=== PATIENT | female | born 1960 | race Caucasian/White ===

== ENCOUNTER 2017-12-01 | Outpatient (CLI) | END 2017-12-01 20:24 | disposition critical access hospital (66) | CPT/HCPCS: A0425; A0427 ==

== ENCOUNTER 2017-12-01 20:39 | Emergency (ER) | payer OTHER ==
[2017-12-01] MEDS ORDERED: ONDANSETRON 4 MG/2 ML VIAL IVP STA (20:54)
[2017-12-01 21:13] LABS: BASOPHILS % (AUTO) 0.4 %; EOSINOPHILS # (AUTO) 0.1 10^3/uL (0.0-0.7); EOSINOPHILS % (AUTO) 1.2 %; HGB - HEMOGLOBIN 13.8 g/dL (12.0-16.0); LYMPHOCYTES # (AUTO) 2.9 10^3/uL (1.5-3.5); LYMPHOCYTES % (AUTO) 27.6 %; MEAN CORPUSCULAR HEMOGLOBIN 29.2 pg (27.0-31.0); MEAN CORPUSCULAR HGB CONC 33.9 g/dL (32.0-36.0); MEAN CORPUSCULAR VOLUME 86.2 fL (81.0-99.0); MEAN PLATELET VOLUME 7.2 fL (7.9-10.8); MONOCYTES # (AUTO) 0.6 10^3/uL (0.0-1.0); NEUTROPHILS # (AUTO) 6.7 10^3/uL (1.5-6.6); NEUTROPHILS % (AUTO) 64.8 %; PLT - PLATELET COUNT 284 10^3/uL (130-450); RED BLOOD COUNT 4.74 10^6/uL (4.20-5.40); RED CELL DISTRIBUTION WIDTH 13.5 % (12.0-15.0); WHITE BLOOD COUNT 10.4 x10^3/uL (4.8-10.8)
--- NOTE | 2017-12-01 21:15 | ED Physician Documentation ---
History of Present Illness - Stated complaint Stated Complaint: ? ALLERGIC REACTION - Chief complaint Chief Complaint: Neuro - History obtained from History obtained from: Patient, Family, EMS - History of Present Illness Timing: Today Pain level max: 4 Pain level now: 3 Improved by: nothing Worsened by: nothing - Additonal information Additional information: Patient is a 57-year-old female who presents to the emergency department after a syncopal event today. She states that this happens to her approximately once every 11 years. She states that tonight she felt nauseated and "sick to her stomach". She also felt warm all over, went to lie down and had a syncopal event. Did have urinary incontinence. States that that has occurred before. states he found her on the ground, but she was not confused. There was no seizure activity witnessed. She states that this has been going on since the late . Currently feels normal other than a mild headache and mild nausea. No chest pain. No shortness of breath. No palpitations. Review of Systems Ten Systems: 10 systems reviewed and negative Constitutional: denies: Fever, Chills Ears: denies: Ear pain Nose: denies: Rhinorrhea / runny nose, Congestion Throat: denies: Sore throat Cardiac: denies: Chest pain / pressure, Palpitations Respiratory: denies: Dyspnea, Cough GI: denies: Hematemesis, Bloody / black stool : reports: Incontinent. denies: Dysuria, Frequency, Hesitancy Skin: denies: Rash Musculoskeletal: denies: Neck pain, Back pain Neurologic: denies: Focal weakness, Numbness, Confused, Altered mental status PD PAST MEDICAL HISTORY - Past Medical History Past Medical History: Yes Endocrine/Autoimmune: HyPOthyroidism - Past Surgical History Past Surgical History: Yes General: Appendectomy - Present Medications Home Medications: Ambulatory Orders Medication Instructions Recorded Confirmed Levothyroxine [Synthroid] 01/30/16 - Allergies Allergies/Adverse Reactions: Allergies Allergy/AdvReac Type Severity Reaction Status Date / Time No Known Drug Allergies Allergy Verified 12/01/17 20:50 - Living Situation Living Situation: reports: With family Living Arrangement: reports: At home - Social History Does the pt smoke?: No Smoking Status: Never smoker PD ED PE NORMAL - Vitals Vital signs reviewed: Yes - General General: Alert and oriented X 3 - HEENT HEENT: Atraumatic, PERRL, Ears normal, Moist mucous membranes, Pharynx benign, Other (Normal intraoral exam. No tongue biting. No swollen tongue) - Neck Neck: Supple, no meningeal sign - Cardiac Cardiac: RRR, Strong equal pulses - Respiratory Respiratory: No respiratory distress, Clear bilaterally - Abdomen Abdomen: Soft, Non tender, Non distended - Back Back: No spinal TTP - Derm Derm: Warm and dry, No rash - Extremities Extremities: No edema - Neuro Neuro: Alert and oriented X 3, merchandising team lead 2-12 intact, No motor deficit, No sensory deficit Eye Opening: Spontaneous Motor: Obeys Commands Verbal: Oriented GCS Score: 15 - Psych Psych: Normal mood, Normal affect Results - Vitals Vitals: Vital Signs - 24 hr 12/01/17 12/01/17 20:42 22:19 Temperature 36.8 C Heart Rate 89 94 Respiratory 16 16 Rate Blood Pressure 141/95 H 142/65 H O2 Saturation 94 96 Oxygen O2 Source Room air - EKG (time done) 2044 Rate: Rate (enter#) (87) Rhythm: NSR Vincent: Normal Intervals: Normal PA QRS: Normal Ischemia: Normal ST segments, Q waves (III, aVF) Computer interpretation: Agree with computer - Labs Labs: Laboratory Tests 12/01/17 12/01/17 12/01/17 21:09 21:09 21:09 WBC 10.4 RBC 4.74 Hgb 13.8 Hct 40.8 MCV 86.2 MCH 29.2 MCHC 33.9 RDW 13.5 Plt Count 284 MPV 7.2 L Neut # (Auto) 6.7 H Lymph # (Auto) 2.9 [place] # (Auto) 0.6 Eos # (Auto) 0.1 Baso # (Auto) 0.0 Absolute Nucleated RBC 0.00 Nucleated RBC % 0.0 Sodium 141 Potassium 4.0 Chloride 106 Carbon Dioxide 26 Anion Gap 9.0 BUN 19 Creatinine 0.9 Estimated GFR (MDRD) 65 L Glucose 113 H Calcium 9.4 Total Bilirubin 0.4 AST 27 ALT 29 Alkaline Phosphatase 48 Troponin I < 0.04 Total Protein 7.9 Albumin 4.3 Globulin 3.6 Albumin/Globulin Ratio 1.2 Lipase 31 Urine Color Urine Clarity Urine pH Ur Specific [place] Urine Protein Urine Glucose (UA) Urine Ketones Urine Occult Blood Urine Nitrite Urine Bilirubin Urine Urobilinogen Ur Leukocyte Esterase Ur Microscopic Review Urine Culture Comments Salicylates < 6.0 Acetaminophen < 10 L Ethyl Alcohol < 5.0 12/01/17 22:00 WBC RBC Hgb Hct MCV MCH MCHC RDW Plt Count MPV Neut # (Auto) Lymph # (Auto) [place] # (Auto) Eos # (Auto) Baso # (Auto) Absolute Nucleated RBC Nucleated RBC % Sodium Potassium Chloride Carbon Dioxide Anion Gap BUN Creatinine Estimated GFR (MDRD) Glucose Calcium Total Bilirubin AST ALT Alkaline Phosphatase Troponin I Total Protein Albumin Globulin Albumin/Globulin Ratio Lipase Urine Color YELLOW Urine Clarity CLEAR Urine pH 5.5 Ur Specific [place] >=1.030 H Urine Protein NEGATIVE Urine Glucose (UA) NEGATIVE Urine Ketones NEGATIVE Urine Occult Blood TRACE-INTA Urine Nitrite NEGATIVE Urine Bilirubin NEGATIVE Urine Urobilinogen 0.2 (NORMAL) Ur Leukocyte Esterase NEGATIVE Ur Microscopic Review NOT INDICATED Urine Culture Comments NOT INDICATED Salicylates Acetaminophen Ethyl Alcohol - Rads (name of study) Head CT Radiology: Prelim report reviewed, EMP read contemporaneously, See rad report ( No acute intracranial abnormality) PD MEDICAL DECISION MAKING - ED course Complexity details: reviewed results, re-evaluated patient, considered differential, d/w patient, d/w family ED course: Patient is a 57-year-old female who presents to the emergency department with a syncopal event versus possible seizure activity tonight at home. She states this is an ongoing issue for approximately 30 years, has occurred 6 times within that timeframe. Does not want to stay in the hospital tonight. She states she will follow-up closely with her doctor and not drive until she is cleared. Her is going to drive her home tonight. She is informed that she is welcome to return any time should she change her mind. Recommend that she have a cardiac event monitor as well as an MRI and likely EEG to exclude seizure activity. Patient counseled regarding signs and symptoms for which I believe and urgent re-evaluation would be necessary. Patient with good understanding of and agreement to plan and is comfortable going home at this time This document was made in part using voice recognition software. While efforts are made to proofread this document, sound alike and grammatical errors may occur. - Sepsis Event Vital Signs: Vital Signs - 24 hr 12/01/17 12/01/17 20:42 22:19 Temperature 36.8 C Heart Rate 89 94 Respiratory 16 16 Rate Blood Pressure 141/95 H 142/65 H O2 Saturation 94 96 Oxygen O2 Source Room air Departure - Departure Disposition: 01 Home, Self Care Clinical Impression: Syncope Qualifiers: Syncope type: unspecified Qualified Code(s): R55 - Syncope and collapse Condition: Good Instructions: ED Fainting Unkn Cause Follow-Up: DREAD ORTIZ MD [Physician No Access] - Within 1 week Comments: The cause of your recurrent passing out is unclear, it may be due to a heart arrhythmia and you should have a cardiac event monitor from your doctor to see if you are having any cardiac events. It also could be due to atypical seizures , you may benefit from an MRI and EEG with your doctor as well. Return if you worsen or change your mind about staying in the hospital. Discharge Date/Time: 12/01/17 22:30
[2017-12-01 21:28] LABS: ALBUMIN 4.3 g/dL (3.2-5.5); ALBUMIN/GLOBULIN RATIO 1.2 (1.0-2.2); ALKALINE PHOSPHATASE 48 IU/L (42-121); ALT ALANINE AMINOTRANSFERASE 29 IU/L (10-60); AST ASPARTATE AMINOTRANSFERASE 27 IU/L (10-42); BILIRUBIN,TOTAL 0.4 mg/dL (0.2-1.0); BUN - BLOOD UREA NITROGEN 19 mg/dL (6-20); CALCIUM 9.4 mg/dL (8.5-10.3); CARBON DIOXIDE - CO2 26 mmol/L (21-32); CHLORIDE 106 mmol/L (101-111); CREATININE 0.9 mg/dL (0.4-1.0); GFR - MDRD 65 (>89); GLUCOSE 113 mg/dL (70-100); LIPASE 31 U/L (22-51); SALICYLATE < 6.0 mg/dL; SODIUM 141 mmol/L (135-145); TOTAL PROTEIN 7.9 g/dL (6.7-8.2)
--- NOTE | 2017-12-01 21:31 | CT Report ---
Procedure Date: 12/01/2017 Accession Number: [id number] / [id number] Procedure: CT - Head W/O CPT Code: FULL RESULT: EXAM: CT HEAD EXAM DATE: 12/01/2017 09:21 PM. CLINICAL HISTORY: Syncope vs seizure, hit head. COMPARISON: None. TECHNIQUE: Multiaxial CT images were obtained from the foramen magnum to the vertex. Reformats: Coronal. IV contrast: None. In accordance with CT protocol optimization, one or more of the following dose reduction techniques were utilized for this exam: automated exposure control, adjustment of mA and/or KV based on patient size, or use of iterative reconstructive technique. FINDINGS: Parenchyma: No intraparenchymal hemorrhage. No evidence of mass, midline shift, or CT findings of infarction. Dawkins-white differentiation is distinct. Extraaxial Spaces: Normal for age. No subdural or epidural collections identified. Ventricles: Normal in size and position. Sinuses and Orbits: Imaged paranasal sinuses, orbits, and mastoids show no significant abnormality. Bones: No evidence of fracture or calvarial defect. Other: None. IMPRESSION: No acute intracranial abnormality. RADIA
[2017-12-01 21:42] LABS: ACETAMINOPHEN < 10 ug/mL (10-30)
[2017-12-01 22:11] LABS: BILIRUBIN,URINE NEGATIVE (NEGATIVE); CLARITY,URINE CLEAR (CLEAR); GLUCOSE, URINE (UA) NEGATIVE (NEGATIVE); KETONES,URINE (UA) NEGATIVE (NEGATIVE); LEUKOCYTE ESTERASE, URINE NEGATIVE (NEGATIVE); NITRITE,URINE NEGATIVE (NEGATIVE); OCCULT BLOOD,URINE TRACE-INTA (NEGATIVE); PH,URINE 5.5 PH (5.0-7.5); PROTEIN,URINE NEGATIVE (NEGATIVE); UROBILINOGEN,URINE 0.2 (NORMAL) E.U./dL (NORMAL)
[2017-12-01 22:22] VITALS: BP 142/65
== END 2017-12-01 22:30 | disposition home or self-care (01) ==
LOC: EDUNIT# → ED 20:39
DX: R55 Syncope and collapse (principal)
CPT/HCPCS: 36415; 70450; 80053; 80307; 80320; 80329; 81001; 81003; 83690; 84484; 85025; 87086; 93005; 96374; 99283; 99284

== ENCOUNTER 2020-04-22 11:12 | Outpatient (CLI) | payer OTHER ==
--- NOTE | 2020-04-25 16:02 | Mammography Report ---
BILATERAL DIGITAL SCREENING MAMMOGRAM 3D/2D: 04/22/2020 CLINICAL: Routine screening. Comparison is made to exams dated: 02/04/2019 mammogram, 02/04/2018 mammogram, 02/04/2017 mammogram, an d 01/23/2016 mammogram - [facility]. There are scattered fibroglandular elements in bot h breasts. There are benign calcifications in both breasts. No significant masses, calcifications, or other findings are seen in either breast. There has been no significant interval change. IMPRESSION: BENIGN There is no mammographic evidence of malignancy. A 1 year screening mammogram is recommended. This exam was interpreted at Station ID: [id number]. NOTE: For mammograms, a report in lay terms will be sent to the patient. Approximately 15% of breast malignancies will not be visualized mammographically. In the management of a palpable breast mass, a negative mammogram must not discourage biopsy of a clinically suspicious lesion. Electronically Signed By: Adolfo Workman M.D. [email or web address]/penrad:04/22/2020 16:55:09 ACR BI-RADS Category 2: Benign Finding(s) 3342F PARENCHYMAL PATTERN: (A) - The breast(s) demonstrate(s) scattered fibroglandular densities. BI-RADS CATEGORY: (2) - 2 RECOMMENDATION: (ANNUAL) - Recommend routine annual screening mammography. [id number] 1 year screening LATERALITY: (B)
== END 2020-04-22 11:13 | disposition home or self-care (01) ==
LOC: DI.N 11:12
DX: Z12.31 Encounter for screening mammogram for malignant neoplasm of breast (principal)
CPT/HCPCS: 77063; 77067

== ENCOUNTER 2021-08-31 11:21 | Outpatient (CLI) | payer OTHER ==
--- NOTE | 2021-09-01 10:13 | Mammography Report ---
BILATERAL DIGITAL SCREENING MAMMOGRAM 3D/2D: 08/31/2021 CLINICAL: Routine screening. Comparison is made to exams dated: 04/22/2020 mammogram - [facility], 02/04/2019 [facility], and 02/04/2018 mammogram - [facility]. There are scattered fibroglandular [place] ents in both breasts. There are benign calcifications in both breasts. No significant masses, calcifications, or other findings are seen in either breast. There has been no significant interval change. IMPRESSION: BENIGN There is no mammographic evidence of malignancy. A 1 year screening mammogram is recommended. This exam was interpreted at Station ID: [id number]. NOTE: For mammograms, a report in lay terms will be sent to the patient. Approximately 15% of breast malignancies will not be visualized mammographically. In the management of a palpable breast mass, a negative mammogram must not discourage biopsy of a clinically suspicious lesion. Electronically Signed By: Bi edmondson/paris:08/31/2021 12:33:32 ACR BI-RADS Category 2: Benign Finding(s) 3342F PARENCHYMAL PATTERN: (A) - The breast(s) demonstrate(s) scattered fibroglandular densities. BI-RADS CATEGORY: (2) - 2 RECOMMENDATION: (ANNUAL) - Recommend routine annual screening mammography. [id number] 1 year screening LATERALITY: (B)
== END 2021-08-31 11:22 | disposition home or self-care (01) ==
LOC: DI.N 11:21
DX: Z12.31 Encounter for screening mammogram for malignant neoplasm of breast (principal)